=== PATIENT | male | born 1995 | race Caucasian/White ===

== ENCOUNTER 2020-10-30 10:50 | Emergency (ER) | payer OTHER ==
[2020-10-30] MEDS ORDERED: NORCO 5-325 TA1 EACH PO (11:19)
== END 2020-10-30 12:20 | disposition home or self-care (01) ==
LOC: FER 10:50
DX: S62.336A Displaced fracture of neck of fifth metacarpal bone, right hand, initial encounter for closed fracture (principal); W22.03XA Walked into furniture, initial encounter
CPT/HCPCS: 73130